=== PATIENT | male | born 1960 | race Caucasian/White ===

== ENCOUNTER 2020-07-29 16:43 | Emergency (ER) | payer MEDICARE, BC, SELFPAY ==
[2020-07-29 16:43] VITALS: BP 125/83; PULSE 67; RESP 17; TEMP 36.8; O2SAT 98; BMI 23.7
--- NOTE | 2020-07-29 16:46 | HMH.EDGENADL ---
ED Disposition Clinical Impression: Laceration of right little finger Qualifiers: Encounter type: initial encounter Damage to nail status: without damage Foreign body presence: without foreign body Qualified Code(s): S61.216A - Laceration without foreign body of right little finger without damage to nail, initial encounter Disposition: Xfer SNF Condition on Discharge: Good Instructions: DI for Laceration Repair With Dermabond Referrals: Greyson English MD [Staff Physician] - - Critical Care Critical Care Time: No Attestation: On , the high probability of a clinically significant, sudden or life threatening deterioration of the following system(s) required my full and direct attention, intervention and personal management. The time I documented below is in addition to time spent performing reported procedures but includes the following listed in this critical care notation. Medical Decision Making - Medical Records Medical records reviewed: Yes: I reviewed the patient's medical records. - Javier Inquiry Pt receiving controlled substance: No Vital Signs: 07/29/20 16:43 Temperature 98.2 F Temperature Source Oral Pulse Rate [Right Radial] 67 Respiratory Rate 17 Blood Pressure [Right Arm] 125/83 Blood Pressure Mean [Right Arm] 97 02 Sat by Pulse Oximetry 98 Medical Decision Narrative: 60-year-old male presented to the emergency department with a small laceration to the right fifth digit. Superficial in nature. Tendons are intact. Neurologically intact. Patient will require Dermabond repair. Needs follow-up with PCP. Strict return precautions. Verbalized understanding. General Adult HPI - General Chief complaint: Skin/Abscess/Foreign Body Stated complaint: laceration Time Seen by Provider: 07/29/20 16:47 Mode of Arrival: EMS Limitations: No Limitations Description of Symptoms (Recalled from ER Triage Doc. by RN): pt has a right 5th finger laceration that he cut last night at 8 pm on a coke can. - History of Present Illness HPI narrative: This is a 60-year-old male presented to the emergency department after sustaining a laceration to his right pinky. This occurred last night. The patient states that he accidentally cut it on a can of soda. States that it had some bleeding today so he wanted to be checked on the emergency department. The patient did not sustain any other injuries. He is unsure of his tetanus status is up-to-date. Patient has good range of motion in the finger. Complains of some mild pain. No chest pain or shortness of breath. No headache or change in vision. No focal weakness. No abdominal pain or vomiting. - Related Data Home Medications Medication Instructions Recorded Confirmed amlodipine 5 mg tablet 5 mg PO DAILY 07/22/19 09/23/19 aspirin 81 mg tablet,delayed 81 mg PO DAILY 07/22/19 09/23/19 release atorvastatin 80 mg tablet 80 mg PO QHS 07/22/19 09/23/19 calcium carbonate 215 mg calcium 215 mg PO BID 07/22/19 09/23/19 (500 mg) chewable tablet clopidogrel 75 mg tablet 75 mg PO DAILY 07/22/19 09/23/19 duloxetine 60 mg capsule,delayed 60 mg PO DAILY 07/22/19 09/23/19 release finasteride 5 mg tablet 5 mg PO DAILY 07/22/19 09/23/19 levetiracetam 750 mg tablet 750 mg PO BID 07/22/19 09/23/19 potassium chloride 20 mEq 20 meq PO DAILY 07/22/19 09/23/19 tablet,extended release(part/cryst) ranitidine HCl 150 mg capsule 150 mg PO DAILY 07/22/19 09/23/19 Previous Rx's Medication Instructions Recorded Ciprofloxacin HCl [Cipro 500mg 500 mg PO BID #20 tab 09/15/19 Tab] Phenazopyridine HCl [Pyridium 200 pow PO TID #6 tab 09/15/19 200mg Tablet] Allergies Allergy/AdvReac Type Severity Reaction Status Date / Time erythromycin base Allergy Intermediate Verified 09/23/19 11:08 Penicillins Allergy Intermediate Verified 09/23/19 11:08 [facility] History - Hepatitis A Screen Drug use history?: No High risk sexual behaviors?: No History of
[2020-07-29 17:08] VITALS: BP 125/83; PULSE 67; RESP 14; TEMP 36.8; O2SAT 100
== END 2020-07-29 17:09 | disposition home or self-care (01) ==
PROVIDERS: Emergency Provider Emergency Medicine; PCP Emergency Medicine
DX: S61.216A Laceration without foreign body of right little finger without damage to nail, initial encounter (principal); W26.8XXA Contact with other sharp object(s), not elsewhere classified, initial encounter; Y92.019 Unspecified place in single-family (private) house as the place of occurrence of the external cause; Z88.0 Allergy status to penicillin; Z86.73 Personal history of transient ischemic attack (TIA), and cerebral infarction without residual deficits
CPT/HCPCS: 12001; 99282

== ENCOUNTER → 2020-12-28 09:01 | Outpatient (CLI) | payer MEDICARE, BC, SELFPAY ==
--- NOTE | 2020-12-28 09:05 | XR_ITS ---
PROCEDURE: XR FOOT WT BEARING LT 3V CLINICAL INDICATION: foot pain COMPARISON: No exams were available for comparison FINDINGS: No fracture or dislocation. No lytic or blastic change. There is normal mineralization. Mild osteoarthritic changes are present involving the 1st metatarsophalangeal joint. Other findings:None. 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
--- NOTE | 2020-12-28 09:05 | XR_ITS ---
PROCEDURE: XR FOOT WT BEARING RT 3V CLINICAL INDICATION: foot pain COMPARISON: No exams were available for comparison FINDINGS: There are nondisplaced fractures involving the head of the 3rd and 4th metatarsal. Cortical regularity involves the medial articular surface of the distal aspect of the 4th metatarsal. The joint spaces are well-preserved. No significant degenerative/arthritic changes. No er the age of the fractures is undetermined. Please correlate with clinical findings. No other significant anomalies are evident. Other findings:None. IMPRESSION: Nondisplaced fractures involving the distal aspect of the 4th and 3rd metatarsals age indeterminate with cortical irregularity involving the medial articular surface distally of the 4th metatarsal. Dictated by: Dustin Dunlap MD 12/28/2020 11:40 Dustin Dunlap MD in [place] 12/28/2020 11:40
== END ==
PROVIDERS: PCP Emergency Medicine; Visit Provider Nurse Practitioner
DX: M79.672 Pain in left foot (principal); M79.671 Pain in right foot
CPT/HCPCS: 73630

== ENCOUNTER → 2021-01-30 10:09 | Outpatient (CLI) | payer MEDICARE, BC, SELFPAY ==
--- NOTE | 2021-01-30 10:13 | XR_ITS ---
PROCEDURE: XR FOOT WT BEARING RT 3V CLINICAL INDICATION: foot pain COMPARISON: CR XR FOOT WT BEARING LT 3V from 12/28/2020 CR XR FOOT WT BEARING RT 3V from 12/28/2020 FINDINGS: Nondisplaced healing fractures are present at the distal aspect of the 3rd and 4th metatarsal with callus formation developing at the fracture sites. There are minimal osteoarthritic changes at the 1st metatarsophalangeal joint. No other significant anomalies are evident. There is mild impaction at the 4th metatarsal fracture with mild lateral angulation of the distal fracture fragment IMPRESSION: Healing 4th and 5th metatarsal fractures Dictated by: Dustin Dunlap MD 01/30/2021 12:24 Dustin Dunlap MD in [place] 01/30/2021 12:24
== END ==
PROVIDERS: PCP Emergency Medicine; Visit Provider Podiatrist
DX: M79.673 Pain in unspecified foot (principal); S92.501A Displaced unspecified fracture of right lesser toe(s), initial encounter for closed fracture
CPT/HCPCS: 73630

== ENCOUNTER → 2021-09-24 14:48 | Outpatient (CLI) | payer MEDICARE, BC, SELFPAY ==
--- NOTE | 2021-09-24 14:52 | XR_ITS ---
PROCEDURE: XR ANKLE WT BEARING LT MIN 3V CLINICAL INDICATION: fracture evaluation COMPARISON: No exams were available for comparison FINDINGS: There is a nondisplaced oblique fracture involving the distal shaft of the fibula. The fracture extends obliquely from the posterior to the anterior aspect of the distal fibula. Soft tissue swelling is present laterally. The ankle mortise appears preserved. IMPRESSION: Nondisplaced oblique fracture of the distal fibula with soft tissue swelling Dictated by: Dustin Dunlap MD 09/24/2021 15:29 Dustin Dunlap MD in [place] 09/24/2021 15:29
== END ==
PROVIDERS: PCP Emergency Medicine; Visit Provider Podiatrist
DX: M25.572 Pain in left ankle and joints of left foot (principal)
CPT/HCPCS: 73610

== ENCOUNTER → 2021-10-22 13:23 | Outpatient (CLI) | payer MEDICARE, BC, SELFPAY ==
--- NOTE | 2021-10-22 13:26 | XR_ITS ---
FINAL REPORT CLINICAL HISTORY: fracture follow up FINDINGS: RIGHT FOOT 3 views of the right foot were obtained and compared to prior exam from 01/10/2021. Chronic fractures are seen in the distal third and fourth metatarsals. There is a small calcification superior to the distal talus, new from prior exam which may represent age-indeterminate avulsion fracture. There is also a small calcification lateral to the distal calcaneus, also new from prior exam but age indeterminate. Soft tissues are unremarkable. IMPRESSION: New small calcifications superior to the distal talus and lateral to the distal calcaneus which could represent age-indeterminate fractures. Chronic fractures of the distal third and fourth metatarsals. Reviewed, Interpreted and Dictated by Glenroy Kimble III, MD Transcribed by Mari Win Authenticated by Glenroy Kimble III, MD on 10/22/2021 02:23:05 PM [facility]
--- NOTE | 2021-10-22 13:26 | XR_ITS ---
FINAL REPORT CLINICAL HISTORY: fracture follow up FINDINGS: LEFT ANKLE 3 views of the left ankle were obtained and compared to prior exam from 02/07/2021. Again seen is an oblique fracture of the distal fibular metaphysis with interval development of small callus formation. No other fracture is identified. There is no dislocation. The mortise is intact. Mild degenerative changes are noted. There is lateral soft tissue swelling. IMPRESSION: Interval callus formation of the previously seen oblique distal fibular fracture. Reviewed, Interpreted and Dictated by Glenroy Kimble III, MD Transcribed by Mari Win Authenticated by Glenroy Kimble III, MD on 10/22/2021 02:22:59 PM [facility]
== END ==
PROVIDERS: PCP Emergency Medicine; Visit Provider Podiatrist
DX: T14.8XXA Other injury of unspecified body region, initial encounter (principal); M25.572 Pain in left ankle and joints of left foot; M79.671 Pain in right foot; S82.832D Other fracture of upper and lower end of left fibula, subsequent encounter for closed fracture with routine healing; S92.155D Nondisplaced avulsion fracture (chip fracture) of left talus, subsequent encounter for fracture with routine healing
CPT/HCPCS: 73610; 73630

== ENCOUNTER → 2021-11-19 13:20 | Outpatient (CLI) | payer MEDICARE, BC, SELFPAY ==
--- NOTE | 2021-11-19 13:25 | XR_ITS ---
FINAL REPORT CLINICAL HISTORY: fracture follow up COMPARISON: October 22, 2021 FINDINGS: LEFT ANKLE: Three weight-bearing views of the left ankle were obtained. Again seen is an oblique fracture of the distal fibular metaphysis. There is no change in bony alignment. There is interval callus formation at the fracture site. The joint spaces and mortise are intact. There is no soft tissue abnormality. IMPRESSION: Healing fracture of the distal fibular metaphysis. Reviewed, Interpreted and Dictated by Glenroy Kimble III, MD Transcribed by Ahmet Lan Authenticated by Glenroy Kimble III, MD on 11/19/2021 02:28:50 PM [facility]
== END ==
PROVIDERS: PCP Emergency Medicine; Visit Provider Podiatrist
DX: S82.832A Other fracture of upper and lower end of left fibula, initial encounter for closed fracture (principal); S92.001A Unspecified fracture of right calcaneus, initial encounter for closed fracture; S92.152A Displaced avulsion fracture (chip fracture) of left talus, initial encounter for closed fracture; T14.8XXA Other injury of unspecified body region, initial encounter
CPT/HCPCS: 73610

== ENCOUNTER → 2021-12-17 13:06 | Outpatient (CLI) | payer MEDICARE, BC, SELFPAY ==
--- NOTE | 2021-12-17 13:09 | XR_ITS ---
FINAL REPORT CLINICAL HISTORY: fracture follow up...pain COMPARISON: December 28, 2020 FINDINGS: Left foot Three views of the left foot were obtained. There is an oblique fracture of the proximal 2nd metatarsal with mild distraction that appears subacute with mild callus formation. There is a subacute fracture of the distal fibula. Mild degenerative changes are present. The bones are osteopenic. IMPRESSION: Oblique fracture of the proximal 2nd metatarsal with mild callus formation. Subacute fracture of the distal fibula. Reviewed, Interpreted and Dictated by Glenroy Kimble III, MD Transcribed by Rosa Rodríguez Authenticated by Glenroy Kimble III, MD on 12/17/2021 03:46:13 PM [facility]
== END ==
PROVIDERS: PCP Emergency Medicine; Visit Provider Podiatrist
DX: T14.8XXA Other injury of unspecified body region, initial encounter (principal); S82.832G Other fracture of upper and lower end of left fibula, subsequent encounter for closed fracture with delayed healing; S92.325D Nondisplaced fracture of second metatarsal bone, left foot, subsequent encounter for fracture with routine healing; S99.912D Unspecified injury of left ankle, subsequent encounter
CPT/HCPCS: 73630

== ENCOUNTER 2021-12-24 13:28 | Outpatient (RCR) | payer MEDICARE, BC, SELFPAY | END 2021-12-24 13:30 | disposition home or self-care (01) | LOC: PT 13:28 | PROVIDERS: PCP Emergency Medicine; Visit Provider Podiatrist | DX: M25.572 Pain in left ankle and joints of left foot; M79.672 Pain in left foot | CPT/HCPCS: 97110; 97163 ==